=== PATIENT | female | born 1990 ===

== ENCOUNTER 2018-05-30 15:49 | Emergency (ER) | payer OTHER ==
--- NOTE | 2018-05-30 16:26 | UC ---
Cardiac HPI - HPI Summary HPI Summary: Onset of right chest pain described as throbbing 2 days ago, worse with movement , with pain radiating to the right side of the neck. Onset while watching her son. No relation to food, no hx of reflux, no associated nausea. Pain worse with movement, radiated to right side of neck, paresthesias in both arms. no syncopy. No associated nausea. Much improved today, but comes in because she is concerned about FH of heart disease. Non-smoker, does not know her cholesterol numbers, not taking contraceptives. with no hx of hypertension in her pegnancy. - History of Current Complaint Chief Complaint: UCChestPain Stated Complaint: CHEST PAIN Time Seen by Provider: 05/30/18 15:53 Hx Obtained From: Patient Onset/Duration: Sudden Onset, Lasting Days - 2.5 Timing: Constant Initial Severity: Moderate Current Severity: None Pain Intensity: 0 Chest Pain Location: Right Anterior Character: Irregular, Dull/Aching Aggravating Factor(s): Nothing Alleviating Factor(s): Rest Associated Signs & Symptoms: Positive: Chest Pain, Anxiety, Tingling - Risk Factors Pulmonary Embolism Risk Factors: Negative Cardiac Risk Factors: Family History Atrial Fibrillation: Negative TAD Risk Factors: Negative - Allergy/Home Medications Allergies/Adverse Reactions: Allergies Allergy/AdvReac Type Severity Reaction Status Date / Time No Known Allergies Allergy Verified 05/30/18 16:07 Home Medications: Home Medications NK [No Home Medications Reported] 05/30/18 [History Confirmed 05/30/18] PMH/Surg Hx/FS Hx/Imm Hx Previously Healthy: Yes - Surgical History Surgical History: Yes Surgery Procedure, Year, and Place: 1 2014 - Family History Known Family History: Positive: Cardiac Disease - father age 57 with angina; GF had defibrillator, Hypertension - mother - Social History Occupation: Unemployed Lives: With Family Alcohol Use: None Substance Use Type: None Smoking Status (MU): Never Smoked Tobacco Have You Smoked in the Last Year: No Review of Systems All Other Systems Reviewed And Are Negative: Yes Constitutional: Positive: Fatigue - did not sleep night before last Eyes: Positive: Negative. Negative: Blurred Vision ENT: Negative: Sore Throat, Sinus Congestion Respiratory: Positive: Shortness Of Breath. Negative: Cough Cardiovascular: Positive: Palpitations - sense of irregular heart rate at times since her teen years., Chest Pain Gastrointestinal: Positive: Negative Genitourinary: Positive: Negative Motor: Positive: Negative Neurovascular: Positive: Negative Musculoskeletal: Positive: Negative Neurological: Negative: Headache, Weakness Psychological: Positive: Anxious Is Patient Immunocompromised?: No Physical Exam Triage Information Reviewed: Yes Appearance: Well-Appearing, No Pain Distress, Thin - Anxious, speaks rapidly Vital Signs: Initial Vital Signs Temp 98.8 F 05/30/18 15:56 Pulse 64 05/30/18 15:56 Resp 16 05/30/18 15:56 BP 101/61 05/30/18 15:56 Pulse Ox 100 05/30/18 15:56 Eye Exam: Other - normal fundi, no arteriolar narrowing. Eyes: Positive: Conjunctiva Clear ENT: Positive: Pharynx normal, TMs normal Neck: Positive: Supple, Nontender, No Lymphadenopathy Respiratory: Positive: Lungs clear, Normal breath sounds Cardiovascular: Positive: RRR, No Murmur Abdomen Description: Positive: Nontender, No Organomegaly, Soft Musculoskeletal Exam: Normal Neurological: Positive: Alert, Muscle Tone Normal Skin Exam: Normal Diagnostics - EKG Cardiac Rate: NL Cardiac Rhythm: Sinus: Normal Ectopy: PACs ST Segment: Normal EKG Comparison: No Significant Change - Assessment/Plan Course Of Treatment: chest pain now resolved; discussed heart disease risks and discussed possible causes. Likely chest wall pain. Monitor and follow up with PMD - Differential Diagnoses - Chest Pain Differential Diagnosis/HQI/PQRI: ACS, Chest Wall, Lower Respiratory Infection - Clinical Impression Provider Diagnosis: Chest wall pain, Anxiety about health Discharge - Sign-Out/Discharge Documenting (check all that apply): Patient Departure All imaging exams completed and their final reports reviewed: No Studies - Discharge Plan Condition: Stable Disposition: HOME Patient Education Materials: Chest Pain (ED) Referrals: No Primary Care Phys,NOPCP [Primary Care Provider] - Grace Curtis MD [Medical Doctor] - Additional Instructions: Your pain is resolved and is not suggestive of a heart problem. Your EKG is normal aside from a benign arrhythmia (Premature atrial controactions). Please arrange a follow up with Dr. Bean within 2 weeks to discuss how to prevent heart disease, and to talk about risk factors. I suggest a cholesterol check. If the pain recurs, you might try using ibuprofen 600mg up to 3 times per day. - Billing Disposition and Condition Condition: STABLE Disposition: Home
== END 2018-05-30 16:57 | disposition home or self-care (01) ==
LOC: UCEAST 15:49
DX: R07.89 Other chest pain (principal); R06.02 Shortness of breath; R53.83 Other fatigue; R20.2 Paresthesia of skin; F41.9 Anxiety disorder, unspecified; R00.2 Palpitations; Z82.49 Family history of ischemic heart disease and other diseases of the circulatory system
CPT/HCPCS: 99201; G0463